=== PATIENT | female | born 1960 | race Caucasian/White ===

== ENCOUNTER 2018-03-04 17:02 | Emergency (ER) | payer BC ==
[2018-03-04 17:27] LABS: URINE APPEARANCE CLEAR; URINE BILIRUBIN NEGATIVE (NEGATIVE); URINE BLOOD NEGATIVE (NEGATIVE); URINE COLOR YELLOW; URINE GLUCOSE (UA) NEGATIVE (NEGATIVE); URINE KETONE NEGATIVE (NEGATIVE); URINE LEUKOCYTE ESTERASE NEGATIVE (NEGATIVE); URINE NITRITE NEGATIVE (NEGATIVE); URINE PROTEIN NEGATIVE (NEGATIVE); URINE UROBILINOGEN 0.2 E.U./dL (0.20 - 1.00)
--- NOTE | 2018-03-04 17:28 | Emergency Department Record ---
History of Present Illness - General Chief Complaint: Back Pain/Injury Stated Complaint: BACK PAIN Time Seen by Provider: 03/04/18 17:15 Source: Patient Mode of Arrival: Ambulatory Limitations: No limitations - History of Present Illness Initial Comments: 57 yo female presents with right hip/low lumbar pain starting Saturday. She awoke with the pain on Saturday. The pain is sharp and occurs with movement of the hip or lumbar area. The pain radiates to the right upper thigh proximally. No distal radiation. No weakness, numbness or tingling. No leg swelling. No history of hip or lumbar disease. She has fibromyalgia. The pain initially started similar to her fibromyalgia. It then increased with any activity or movement. No other recent illness or symptoms. 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 MD Complaint: Back pain Onset/Timin -: Days(s) Similar Symptoms Previously: Yes Place: Home Radiation: Right leg Severity: Severe Severity scale (1-10): 7 Quality: Aching, Sharp Consistency: Getting worse Improves With: Immobilization Worsens With: Movement, Sitting upright, Walking Context: Unknown, Bending, Turning/twisting Associated Symptoms: Nausea/vomiting Treatments Prior to Arrival: Heat therapy, NSAIDS - Related Data Home Medications Medication Instructions Recorded Confirmed Last Taken Calcium Carbonate/Vitamin D3 1 each PO DAILY 03/04/18 03/04/18 Unknown [Calcium 600-Vit D3 400 Caplet] Carisoprodol [Soma] 350 mg PO BID PRN 03/04/18 03/04/18 Unknown Cholecalciferol (Vitamin D3) 2,000 unit PO DAILY 03/04/18 03/04/18 Unknown [Vitamin D3] Cyanocobalamin (Vitamin B-12) 1,000 mcg PO DAILY 03/04/18 03/04/18 Unknown [Vitamin B-12] Docusate Sodium [Colace] 100 mg PO BID 03/04/18 03/04/18 Unknown Gabapentin [Neurontin] 300 mg PO DAILY 03/04/18 03/04/18 Unknown Gabapentin [Neurontin] 600 mg PO DAILY 03/04/18 03/04/18 Unknown Linaclotide [Linzess] 72 mcg PO DAILY 03/04/18 03/04/18 Unknown Nortriptyline HCl [Pamelor] 25 mg PO QHS 03/04/18 03/04/18 Unknown Omeprazole [Prilosec] 20 mg PO DAILY 03/04/18 03/04/18 Unknown Previous Rx's Medication Instructions Recorded Cyclobenzaprine HCl [Flexeril] 10 mg PO TID #15 tablet 03/04/18 Prednisone [Prednisone 20Mg] 20 mg PO BID #12 tab 03/04/18 Allergies Allergy/AdvReac Type Severity Reaction Status Date / Time Sulfa (Sulfonamide Allergy Unknown RASH/sob Verified 03/04/18 17:06 Antibiotics) [SULFA (SULFONAMIDE ANTIBIOTICS)] Travel Screening - Travel/Exposure Within Last 30 Days Have you traveled within the last 30 days?: No - Travel Symptoms Symptom Screening: None Review of Systems Constitutional: Denies: Chills, Fever, Malaise, Weakness Eyes: Denies: Eye discharge ENT: Denies: Congestion, Throat pain Respiratory: Denies: Cough, Dyspnea, Hemoptysis, Wheezes Cardiovascular: Denies: Chest pain Endocrine: Denies: Fatigue Gastrointestinal: Denies: Abdominal pain, Diarrhea, Vomiting Genitourinary: Denies: Dysuria, Hematuria Musculoskeletal: Reports: As per HPI, Arthralgia, Back pain, Myalgia ( fibromyalgia). Denies: Joint swelling, Neck pain Skin: Denies: Bruising, Change in color, Rash Neurological: Denies: Numbness, Tingling, Tremors, Weakness Psychiatric: Denies: Anxiety Hematological/Lymphatic: Denies: Easy bleeding, Easy bruising Past Medical History - SOCIAL HISTORY Smoking Status: Never smoker - RESPIRATORY Hx Respiratory Disorders: No - CARDIOVASCULAR Hx Cardio Disorders: Yes Hx Irregular Heartbeat: Yes (SVT, 2 ablations) - NEURO Hx Neuro Disorders: No - GI Hx GI Disorders: Yes Hx Reflux: Yes Comment:: Constipation - Hx Genitourinary Disorders: No - ENDOCRINE Hx Endocrine Disorders: No - MUSCULOSKELETAL Hx Musculoskeletal Disorders: Yes Hx Fibromyalgia: Yes - PSYCH Hx Psych Problems: No - HEMATOLOGY/ONCOLOGY Hx Hematology/Oncology Disorders: No Family Medical History Any Significant Family History?: Yes Hx Cancer: Mother, Children, Brother/Sister, Grandparents Hx Heart Disease: Father, Grandparents Hx Liver Disease: Mother Physical Exam - General General Appearance: Alert, Oriented x3, Cooperative, No acute distress Limitations: No limitations - Head Head exam: Atraumatic, Normal inspection - Eye Eye exam: Normal appearance. negative: Conjunctival injection - ENT ENT exam: Normal exam Ear exam: Normal external inspection Nasal Exam: Normal inspection Mouth exam: Normal external inspection - Neck Neck exam: Normal inspection, Full ROM. negative: Tenderness - Respiratory Respiratory exam: Normal lung sounds bilaterally. negative: Respiratory distress - Cardiovascular Cardiovascular Exam: Regular rate, Normal rhythm, Normal heart sounds - GI/Abdominal GI/Abdominal exam: Soft. negative: Distended, Guarding, Pulsatile mass, Rebound , Rigid, Tenderness - Rectal Rectal exam: Deferred - exam: Deferred - Extremities Extremities exam: Normal inspection, Full ROM, Normal capillary refill, Tenderness, Other (negative pain with log roll of leg, pain in the lateral hip and low back with hip Flex/Ex; minimal discomfort with internal external rotation). negative: Calf tenderness, Joint swelling, Pedal edema - Back Back exam: Reports: Normal inspection, Muscle spasm, Paraspinal tenderness, Tenderness, Vertebral tenderness. Denies: CVA tenderness (R), CVA tenderness (L ), Full ROM Image of Body Front/Back: 1 - tender to palpation in the low lumbar and SI area, no rash - Neurological Neurological exam: Alert, Normal gait, Oriented X3. negative: Abnormal gait, Altered, Motor sensory deficit - Psychiatric Psychiatric exam: Normal affect, Normal mood - Skin Skin exam: Dry, Intact, Normal color, Warm Course Vital Signs 03/04/18 17:07 Temperature 97.8 F Pulse Rate 74 Respiratory 20 Rate Blood Pressure 136/90 Pulse Ox 100 - Reevaluation(s) Reevaluation #1: 03/04/18 18:03 The UA is negative The patient reports mild improvement with relaxation. 03/04/18 18:26 The XR's of the hip and lumbar spine were reviewed. No acute process. We discussed the XR's, home care, reasons to return and close follow up Disposition Disposition: Discharge Clinical Impression: Sacro-iliac pain Disposition: Home, Self-Care Condition: (1) Good Instructions: Low Back Strain (ED) Additional Instructions: Rest tomorrow avoiding prolonged sitting or standing, lifting or over activity Return if you have fever, uncontrolled pain, weakness, numbness, changes in bowel or bladder function, or any new symptoms or concerns Call your doctor for close follow up Call your doctor for close follow up if the pain is not quickly resolving Prescriptions: Cyclobenzaprine HCl [Flexeril] 10 mg PO TID #15 tablet Prednisone [Prednisone 20Mg] 20 mg PO BID #12 tab Forms: Patient Portal Access Time of Disposition: 18:33 Quality - Quality Measures Quality Measures: N/A - Blood Pressure Screening Does Patient Have Any of the Following: No Blood Pressure Classification: Hypertensive Reading Systolic Measurement: 136 Diastolic Measurement: 90 Screening for High Blood Pressure: < Pre-Hypertensive BP, F/U Documented > [ [id number]] Pre-Hypertensive Follow-up Interventions: Referral to alternative/primary care provider.
[2018-03-04] MEDS ORDERED: DIAZEPAM 5 MG TABLET PO ONE (17:29)
[2018-03-04] MEDS ORDERED: PREDNISONE 20 MG TAB PO ONE (17:29)
== END 2018-03-04 18:43 | disposition home or self-care (01) ==
LOC: ER 17:02
DX: M53.3 Sacrococcygeal disorders, not elsewhere classified (principal); M54.5 Low back pain; M25.551 Pain in right hip; M79.7 Fibromyalgia; R11.2 Nausea with vomiting, unspecified
CPT/HCPCS: 99283; 99284; 81003; 72110; 73502; J3490; J7512